=== PATIENT | female | born 1950 | race Caucasian/White ===

== ENCOUNTER 2023-08-23 06:12 | Day surgery (SDC) | payer MEDICARE, OTHER ==
[2023-08-19 14:37] VITALS: BMI 29.7
[2023-08-19 15:20] LABS: Hematocrit 44.8 % (34.9-44.5); Hemoglobin 14.5 g/dL (12.0-15.5); Mean Corpuscular HGB CONC 32.4 g/dL (32.0-36.0); Mean Corpuscular Hemoglobin 29.4 pg (27.0-33.0); Mean Corpuscular Volume 90.9 fl (81.6-98.3); Mean Platelet Volume 10.5 fl (7.4-10.4); Platelet Count 286 10x3/uL (150-450); RBC Distribution Width 13.4 % (11.5-14.5); Red Blood Cell (RBC) Count 4.93 10x6/uL (3.90-5.03)
[2023-08-19 15:31] LABS: Anion Gap 16 mmol/L (10-20); BUN (Urea Nitrogen) 16 mg/dL (9.8-20.1); Calc. Creatinine Clearance 0 mL/min (70-130); Calcium 9.5 mg/dL (7.8-10.44); Carbon Dioxide 26 mmol/L (23-31); Chloride 100 mmol/L (98-107); Estimated GFR 70; Glucose 83 mg/dL (83-110); Potassium 3.8 mmol/L (3.5-5.1); Sodium 138 mmol/L (136-145)
[2023-08-23] MEDS ORDERED: CeleCOXIB 100 MG CAP ONE (06:16)
[2023-08-23] MEDS ORDERED: CEFAZOLIN 2 GM VIAL ONE (07:01)
[2023-08-23] MEDS ORDERED: Lidocaine 2% PF 5 ML VIAL ONE (07:14)
[2023-08-23] MEDS ORDERED: PROPOFOL 20 ML ONE (07:14)
[2023-08-23] MEDS ORDERED: Ondansetron PF 4 MG/2 ML Vial ONE (07:21)
[2023-08-23] MEDS ORDERED: Dexamethasone 20 MG/5 ML VIAL ONE (07:21)
[2023-08-23] MEDS ORDERED: Ketorolac Tromethamine 30 MG/ML VIAL ONE (07:22)
[2023-08-23] MEDS ORDERED: Meperidine HCl/PF 25 MG/ML VIAL ONE (08:27)
[2023-08-23] MEDS ORDERED: HYDROcodone/Acetaminophen 5/325 mg Tablet ONE (09:00)
== END 2023-08-23 10:10 | disposition home or self-care (01) ==
LOC: CSHSDC 06:12
PROVIDERS: ATTEND Obstetrics & Gynecology
PROC: 0UB98ZZ Excision of Uterus, Via Natural or Artificial Opening Endoscopic (ICD-10-PCS; principal; 2023-08-23)
DX: N95.0 Postmenopausal bleeding (principal); N88.2 Stricture and stenosis of cervix uteri; N84.0 Polyp of corpus uteri; I48.91 Unspecified atrial fibrillation; I10 Essential (primary) hypertension; E03.9 Hypothyroidism, unspecified; Z79.890 Hormone replacement therapy; Z79.899 Other long term (current) drug therapy; Z79.82 Long term (current) use of aspirin; Z88.8 Allergy status to other drugs, medicaments and biological substances
CPT/HCPCS: 80048; 85027; 86850; 86900; 86901; 88305; J1100; J1885; J2001; J2175; J2405; J2704

== ENCOUNTER 2023-10-19 05:44 | Day surgery (SDC) | payer MEDICARE, OTHER ==
[2023-10-14 14:16] VITALS: BMI 29.7
[2023-10-14 14:27] LABS: Hematocrit 42.4 % (34.9-44.5); Hemoglobin 14.1 g/dL (12.0-15.5); Mean Corpuscular HGB CONC 33.3 g/dL (32.0-36.0); Mean Corpuscular Hemoglobin 29.7 pg (27.0-33.0); Mean Corpuscular Volume 89.3 fl (81.6-98.3); Mean Platelet Volume 9.5 fl (7.4-10.4); Platelet Count 286 10x3/uL (150-450); RBC Distribution Width 13.6 % (11.5-14.5); Red Blood Cell (RBC) Count 4.75 10x6/uL (3.90-5.03); White Blood Cell (WBC) Count 9.4 10x3/uL (3.5-10.5)
[2023-10-19] MEDS ORDERED: EPINEPHrine 1 MG/ML VIAL ONE (06:35)
[2023-10-19] MEDS ORDERED: CeleCOXIB 100 MG CAP ONE (06:36)
[2023-10-19] MEDS ORDERED: Bupivacaine PF 0.5% 30 ML VIAL ONE (06:36)
[2023-10-19] MEDS ORDERED: Gabapentin 300 MG CAP ONE (06:37)
[2023-10-19] MEDS ORDERED: Famotidine/PF 20 mg/2ml Vial ONE (06:37)
[2023-10-19] MEDS ORDERED: CEFAZOLIN 2 GM VIAL ONE (07:13)
[2023-10-19] MEDS ORDERED: Dexmedetomidine 200 MCG/2 ML VIAL ONE (07:24)
[2023-10-19] MEDS ORDERED: fentaNYL 50 mcg/mL 1 mL Vial ONE ×3 (07:27→10:15)
[2023-10-19] MEDS ORDERED: Lidocaine 2% PF 5 ML VIAL ONE (07:27)
[2023-10-19] MEDS ORDERED: PROPOFOL 20 ML ONE (07:27)
[2023-10-19] MEDS ORDERED: Rocuronium Bromide 10 MG/ML (10ML VIAL) ONE (07:52)
[2023-10-19] MEDS ORDERED: Ketorolac Tromethamine 30 MG (1 mL) VIAL ONE ×2 (07:52→08:13)
[2023-10-19] MEDS ORDERED: Ondansetron PF 4 MG/2 ML Vial ONE (07:52)
[2023-10-19] MEDS ORDERED: Dexamethasone 20 MG/5 ML VIAL ONE (07:52)
[2023-10-19] MEDS ORDERED: Lidocaine 1% PF 5 ML VIAL ONE (08:13)
[2023-10-19] MEDS ORDERED: Atropine Sulfate 0.4 mg/1 ml Vial ONE (08:13)
[2023-10-19] MEDS ORDERED: HYDROcodone/Acetaminophen 5/325 mg Tablet ONE (11:01)
== END 2023-10-19 12:35 | disposition home or self-care (01) ==
LOC: CSHSDC 05:44
PROVIDERS: ATTEND Obstetrics & Gynecology
PROC: 0UT94ZZ Resection of Uterus, Percutaneous Endoscopic Approach (ICD-10-PCS; principal; 2023-10-19)
PROC: 0UT74ZZ Resection of Bilateral Fallopian Tubes, Percutaneous Endoscopic Approach (ICD-10-PCS; 2023-10-19)
PROC: 0UT24ZZ Resection of Bilateral Ovaries, Percutaneous Endoscopic Approach (ICD-10-PCS; 2023-10-19)
DX: N80.03 Adenomyosis of the uterus (principal); N85.02 Endometrial intraepithelial neoplasia [EIN]; K66.0 Peritoneal adhesions (postprocedural) (postinfection); I48.91 Unspecified atrial fibrillation; E05.00 Thyrotoxicosis with diffuse goiter without thyrotoxic crisis or storm; N85.00 Endometrial hyperplasia, unspecified; E11.9 Type 2 diabetes mellitus without complications; I10 Essential (primary) hypertension; K21.9 Gastro-esophageal reflux disease without esophagitis; Z87.59 Personal history of other complications of pregnancy, childbirth and the puerperium; R19.2 Visible peristalsis; N94.9 Unspecified condition associated with female genital organs and menstrual cycle; Z79.890 Hormone replacement therapy; Z88.8 Allergy status to other drugs, medicaments and biological substances; Z79.899 Other long term (current) drug therapy
CPT/HCPCS: 58571; 85027; 86850; 86900; 86901; J0171; J3010; 88307; J0461; J1100; J1885; J2001; J2405; J2704; S0020; S0028

== ENCOUNTER 2025-06-03 08:02 | Outpatient (CLI) | payer MEDICARE, OTHER | END 2025-06-03 08:03 | disposition home or self-care (01) | LOC: CSHMAMMO 08:02 | PROVIDERS: ATTEND Family Medicine | DX: N64.89 Other specified disorders of breast (principal) | CPT/HCPCS: 76642; 77065; G0279 ==